=== PATIENT | male | born 1995 | race Two or more races ===

== ENCOUNTER 2025-01-03 14:54 | Emergency (ER) | payer OTHER ==
[~2025-01-03] VITALS: Ht 162.6 cm; Wt 72.7 kg
[2025-01-03 16:34] VITALS: TEMP 98.9
[2025-01-03] MEDS: FLUORESCEIN SODIUM 1 MG STRIP OU ONE (17:27)
[2025-01-03] MEDS: PROPARACAINE HCL 0.5% 15 ML OPHTHALMIC SOLUTION OU ONE (17:27)
[2025-01-03 20:40] VITALS: BP 118/60; PULSE 65; RESP 17; O2SAT 98
== END 2025-01-03 22:04 ==
LOC: EMS 14:54
DX: Z77.098 Contact with and (suspected) exposure to other hazardous, chiefly nonmedicinal, chemicals (principal)
CPT/HCPCS: 99284; J9035; Z7502; Z7610